=== PATIENT | male | born 2005 | race Caucasian/White ===

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

== ENCOUNTER → 2023-01-21 | Outpatient (CLI) | payer OTHER ==
[2023-01-21 15:21] LABS: Basophils % (A) 1.1 %; Eosinophils # (A) 0.29 X 10*3/uL (0.04-0.35); Eosinophils % (A) 3.3 %; HCT 47.5 % (39.6-50.0); HGB 15.8 g/dL (13.0-17.0); Immature Grans, Automated 0.3 %; Lymphocytes # (A) 3.41 X 10*3/uL (0.90-5.00); Lymphocytes % (A) 38.3 %; MCH 29.1 pg (27.0-32.0); MCHC 33.3 g/dL (32.0-37.0); MCV 87.5 fL (80.0-97.0); Mean Platelet Volume 12.8 fL (9.5-12.2); Monocytes # (A) 0.65 X 10*3/uL (0.20-1.00); Monocytes % (A) 7.3 %; NRBC Per 100 WBC 0 /100 WBCS (0.0-0.0); Neutrophils # (A) 4.42 X 10*3/uL (1.80-7.70); Neutrophils % (A) 49.7 %; Platelet Count 229 X 10*3/uL (140-440); RBC 5.43 X 10*6/uL (4.40-5.60); RDW 12.9 % (11.5-14.5)
[2023-01-21 16:06] LABS: ALT 71 U/L (10-49); AST 28 U/L (14-35); African American GFR (CKD) 112.2 (60.0-200.0); Albumin/Globulin Ratio 1.92 (1.60-3.17); Alkaline Phosphatase 93 U/L (41-126); BUN/Creat Ratio 9.73 Ratio (12.00-20.00); Blood Urea Nitrogen 10.7 mg/dL (9.0-27.0); Calcium 10.2 mg/dL (8.7-10.3); Carbon Dioxide 23.5 mmol/L (20.0-27.5); Chloride 103 mmol/L (96-109); Chol/HDL Ratio 5.84 Ratio; Globulin 2.6 g/dL (1.6-3.3); Glucose 85 mg/dL (70-110); LDL Cholesterol,Calculated 77.9 mg/dL (0.0-131.0); Non-African American GFR(CKD) 96.8 (60.0-200.0); Potassium 5.2 mmol/L (3.5-5.5); Sodium 142 mmol/L (135-145); Total Protein 7.6 g/dL (6.2-8.2)
== END | disposition home or self-care (01) ==
LOC: LABWHC1 10:13
PROVIDERS: ATTEND Pediatrics Adolescent Medicine
DX: E55.9 Vitamin D deficiency, unspecified (principal); E66.9 Obesity, unspecified; E78.5 Hyperlipidemia, unspecified; L83 Acanthosis nigricans
CPT/HCPCS: 36415; 80053; 80061; 82306; 83036; 84439; 84443; 85025